=== PATIENT | female | born 1950 | race African-American/Black ===

== ENCOUNTER 2019-09-26 15:12 | Emergency (ER) | payer MEDICARE, OTHER ==
[~2019-09-26] VITALS: Ht 152.4 cm; Wt 57.2 kg
--- NOTE | 2019-09-26 15:56 | NUR ---
Dr Corona at the bedside for MSE.
[2019-09-26] MEDS ORDERED: IV NORMAL SALINE 1000 ML BAG IV ONE (16:00)
[2019-09-26 16:20] LABS: BASOPHILS % (AUTO) 0.3 % (0.0-2.0); EOSINOPHILS % (AUTO) 0.2 % (0.0-7.0); HEMATOCRIT 41.6 % (31.2-41.9); HEMOGLOBIN 13.5 g/dL (10.9-14.3); LYMPHOCYTES # (AUTO) 1.1 K/uL (20.0-40.0); LYMPHOCYTES % (AUTO) 6.6 % (20.5-51.5); MEAN CORPUSCULAR HEMOGLOBIN 31.2 uug (24.7-32.8); MEAN CORPUSCULAR HGB CONC 33 g/dL (32.3-35.6); MEAN CORPUSCULAR VOLUME 95.8 fL (75.5-95.3); MONOCYTES # (AUTO) 0.7 K/uL (2.0-10.0); MONOCYTES % (AUTO) 4.3 % (0.0-11.0); NEUTROPHILS # (AUTO) 14.5 K/uL (1.8-8.9); NEUTROPHILS % (AUTO) 88.6 % (38.5-71.5); PLATELET COUNT (AUTO) 227 K/uL (179-408); RED BLOOD CELL COUNT(AUTO) 4.34 MIL/uL (3.63-4.92); WHITE BLOOD COUNT (AUTO) 16.3 K/uL (3.8-11.8)
--- NOTE | 2019-09-26 16:21 | NUR ---
Pt out of ER via [facility]ana for CT scan.
[2019-09-26 16:33] LABS: BILIRUBIN,DIRECT 0.1 mg/dL (0.0-0.2); BILIRUBIN,TOTAL 0.2 mg/dL (0.2-1.0); POTASSIUM 3.8 mmol/L (3.5-5.1); TOTAL PROTEIN, SERUM 8.4 g/dL (6.4-8.2)
--- NOTE | 2019-09-26 16:39 | NUR ---
Pt back from CT, Patient is resting comfortably in bed with eyes closed, NAD noted.
--- NOTE | 2019-09-26 16:59 | NUR ---
Paged [facility], per ERMD request, awaiting call back.
--- NOTE | 2019-09-26 17:03 | NUR ---
Pt accidentaly pulled SL out. Catheter intact and site benign. Pressure and 4x4 gauze applied to site. No bleeding noted.
--- NOTE | 2019-09-26 17:44 | NUR ---
Pt becomes restless inspite reorienting. Pt has another very large BM, appeares normal.
--- NOTE | 2019-09-26 17:50 | NUR ---
ER spoke to DR Theodore(pt's PCP). Instructed to send pt's back to facility.
--- NOTE | 2019-09-26 17:53 | NUR ---
Called [facility] for a BLS transfer, ETA [id number], trip #[id number]. Patient is resting comfortably in bed with eyes closed, NAD noted.
--- NOTE | 2019-09-26 18:53 | NUR ---
Report given to transfering it application administrator, Pt left ER in stable condition, D/C paper and pt's belongings given to pt/it application administrator.
[2019-09-26 18:56] VITALS: BP 140/80
== END 2019-09-26 18:57 ==
LOC: ER 15:16
DX: R11.10 Vomiting, unspecified (principal); K56.41 Fecal impaction; G30.9 Alzheimer's disease, unspecified; F02.80 Dementia in other diseases classified elsewhere, unspecified severity, without behavioral disturbance, psychotic disturbance, mood disturbance, and anxiety; R93.5 Abnormal findings on diagnostic imaging of other abdominal regions, including retroperitoneum; E78.5 Hyperlipidemia, unspecified; Z79.899 Other long term (current) drug therapy; Z79.82 Long term (current) use of aspirin; I31.3 Pericardial effusion (noninflammatory); D72.829 Elevated white blood cell count, unspecified; R10.9 Unspecified abdominal pain
CPT/HCPCS: 36415; 70030-TC; 71045; 83605; 83690; 85025; 85730; 87040; 93005; A4663; J7030

== ENCOUNTER 2019-10-23 16:02 | Inpatient (IN) | payer MEDICARE, OTHER ==
[~2019-10-23] VITALS: Ht 160 cm; Wt 54.9 kg
[~2019-10-23 16:02] MED LIST: ASPI81TA31 PO; CITA20TA16 PO; CRAN400C PO; DONE10TA44 PO; LOSA100T31 PO; MEMA10TA PO; SIMV-46 PO; VITAMIN D3 PO
[2019-10-23] MEDS ORDERED: VITAMIN D3 PO (16:25)
[2019-10-23 17:37] LABS: BASOPHILS % (AUTO) 0.5 % (0.0-2.0); EOSINOPHILS # (AUTO) 0.1 K/uL (0.0-0.7); EOSINOPHILS % (AUTO) 1.7 % (0.0-7.0); HEMATOCRIT 40.5 % (31.2-41.9); HEMOGLOBIN 13.5 g/dL (10.9-14.3); LYMPHOCYTES # (AUTO) 2.6 K/uL (20.0-40.0); LYMPHOCYTES % (AUTO) 33.7 % (20.5-51.5); MEAN CORPUSCULAR HEMOGLOBIN 31.4 uug (24.7-32.8); MEAN CORPUSCULAR HGB CONC 33 g/dL (32.3-35.6); MONOCYTES # (AUTO) 0.6 K/uL (2.0-10.0); MONOCYTES % (AUTO) 7.3 % (0.0-11.0); NEUTROPHILS # (AUTO) 4.4 K/uL (1.8-8.9); NEUTROPHILS % (AUTO) 56.8 % (38.5-71.5); PLATELET COUNT (AUTO) 254 K/uL (179-408); RED BLOOD CELL COUNT(AUTO) 4.31 MIL/uL (3.63-4.92); WHITE BLOOD COUNT (AUTO) 7.7 K/uL (3.8-11.8)
[2019-10-23 17:44] LABS: CREATININE 0.9 mg/dL (0.6-1.3); POTASSIUM 3.2 mmol/L (3.5-5.1)
[2019-10-23 17:56] LABS: BILIRUBIN,TOTAL 0.2 mg/dL (0.2-1.0); TOTAL PROTEIN, SERUM 8.2 g/dL (6.4-8.2)
[2019-10-23] MEDS ORDERED: POTASSIUM BICARBONATE/CIT AC 25 MEQ TABLET.EFF PO ONE (18:15)
[2019-10-23] MEDS ORDERED: POTASSIUM BICARBONATE/CIT AC 25 MEQ TABLET.EFF ONE (18:18)
--- NOTE | 2019-10-23 19:30 | NUR ---
hand off and sbar given to night rn
[2019-10-23 20:16] LABS: *BILIRUBIN,URIN NEGATIVE (NEGATIVE); *BLOOD, URINE 2+ (NEGATIVE); *CLARITY,URINE SLIGHTLY CLOUDY (CLEAR); *COLOR,URINE YELLOW (YELLOW); *KETONES,URINE NEGATIVE (NEGATIVE); *UROBILINOGEN,URINE 0.2 E.U./dl (NORMAL); LEUKOCYTE ESTERASE ,URINE 1+ (NEGATIVE); NITRITE, URINE POSITIVE (NEGATIVE); PH,URINE 5.5 (5.0-8.0); UGLUCOSE NEGATIVE (NEGATIVE)
[2019-10-23 20:26] LABS: BACTERIA,URINE MA /HPF (NONE SEEN); SQUAMOUS EPITHELIAL CELL,UR FEW /HPF (NONE SEEN)
[2019-10-23] MEDS ORDERED: CEFTRIAXONE 1 G in IV DEXTROSE 5% 50 ML IV ONE (21:00)
[2019-10-23] MEDS ORDERED: CEFTRIAXONE 1 G VIAL ONE (21:30)
--- NOTE | 2019-10-23 23:29 | NUR ---
Report given to Magui WARREN [facility].
[2019-10-24] VITALS: BP 146/75
--- NOTE | 2019-10-24 | NUR ---
RECEIVED PATIENT VIA GURNEY FROM ER. PATIENT IS ALERT TO SELF ONLY. CONFUSED BUT PLEASANT WHEN APPROACHED. VSS. NO S/S OF PAIN OR DISCOMFORT. NO RESP. DISTRESS NOTED. H/L INTACT AND PATENT. CALL LIGHT IN REACH. ALL NEEDS ATTENDED. WILL CONTINUE TO MONITOR AND ASSESS.
[2019-10-24 05:39] VITALS: BP 133/72
[2019-10-24 07:15] LABS: BASOPHILS % (AUTO) 0.5 % (0.0-2.0); EOSINOPHILS # (AUTO) 0.1 K/uL (0.0-0.7); EOSINOPHILS % (AUTO) 1.4 % (0.0-7.0); HEMATOCRIT 37.9 % (31.2-41.9); HEMOGLOBIN 12.5 g/dL (10.9-14.3); LYMPHOCYTES # (AUTO) 2.3 K/uL (20.0-40.0); LYMPHOCYTES % (AUTO) 28.8 % (20.5-51.5); MEAN CORPUSCULAR HEMOGLOBIN 31.3 uug (24.7-32.8); MEAN CORPUSCULAR HGB CONC 33 g/dL (32.3-35.6); MEAN CORPUSCULAR VOLUME 94.7 fL (75.5-95.3); MONOCYTES # (AUTO) 0.6 K/uL (2.0-10.0); MONOCYTES % (AUTO) 7.9 % (0.0-11.0); NEUTROPHILS # (AUTO) 4.8 K/uL (1.8-8.9); NEUTROPHILS % (AUTO) 61.4 % (38.5-71.5); PLATELET COUNT (AUTO) 244 K/uL (179-408); WHITE BLOOD COUNT (AUTO) 7.9 K/uL (3.8-11.8)
[2019-10-24 07:26] LABS: POTASSIUM 3.4 mmol/L (3.5-5.1)
[2019-10-24] MEDS ORDERED: HOME MED MISCELLANEOUS XX SCH (07:30)
--- NOTE | 2019-10-24 08:00 | NUR ---
received pt. resting in bed alert oriented to self non verbal. pt. appears to be anxious. pt. resting comfortably. IV in R wrist 20 gauge intact patent saline lock. Pt. on room air saturating well. safety measures in place. call light within reach. will continue to monitor pt.
[2019-10-24 10:00] VITALS: BP 141/87
[2019-10-24] MEDS: LOSARTAN POTASSIUM 50 MG TABLET PO SCH (10:26)
[2019-10-24] MEDS: MEMANTINE HCL 10 MG TABLET PO SCH ×2 (10:26→21:02)
[2019-10-24] MEDS: ASPIRIN 81 MG TAB.CHEW PO SCH (10:26)
[2019-10-24] MEDS: DONEPEZIL 10 MG TABLET PO SCH (10:27)
[2019-10-24] MEDS: CITALOPRAM 20 MG TABLET PO SCH (10:28)
[2019-10-24] MEDS ORDERED: POTASSIUM CHLORIDE 20 MEQ TAB.PRT.SR PO ONE (13:00)
[2019-10-24 15:00] VITALS: BP 136/79
[2019-10-24 19:46] VITALS: BP 129/77
[2019-10-24] MEDS: SIMVASTATIN 20 MG TABLET PO SCH (21:02)
[2019-10-25 04:59] VITALS: BP 117/62
--- NOTE | 2019-10-25 07:15 | NUR ---
Nurys from the laboratory reported that patients result is negative for COVID-19 virus
--- NOTE | 2019-10-25 08:09 | NUR ---
Patient noted sitting in up in bed, no complaints of pain or signs of distress noted, on isolation for possible Covid, call light in reach, bed locked and in lowest position, all needs met, lab called for reports that patient is covid negative
[2019-10-25] MEDS: DONEPEZIL 10 MG TABLET PO SCH (08:31)
[2019-10-25] MEDS: CITALOPRAM 20 MG TABLET PO SCH (08:31)
[2019-10-25] MEDS: ASPIRIN 81 MG TAB.CHEW PO SCH (08:31)
[2019-10-25] MEDS: LOSARTAN POTASSIUM 50 MG TABLET PO SCH (08:49)
[2019-10-25] MEDS: MEMANTINE HCL 10 MG TABLET PO SCH ×2 (08:50→20:43)
[2019-10-25] MEDS ORDERED: ERGOCALCIFEROL 50,000 UNIT CAPSULE PO SCH (09:00)
[2019-10-25 12:00] VITALS: BP 107/64
[2019-10-25 16:01] VITALS: BP 116/70
[2019-10-25] MEDS ORDERED: IV 1/2NS 1000 ML 1,000 ML IV PRN (16:33)
[2019-10-25] MEDS ORDERED: CEFTRIAXONE 1 G VIAL IM SCH (16:45)
[2019-10-25 20:00] VITALS: BP 128/62
--- NOTE | 2019-10-25 20:00 | NUR ---
RECEIVED PATIENT AWAKE IN BED. ALERT TO SELF ONLY. CONFUSED BUT PLEASANT WHEN APPROACHED. NO S/S OF PAIN OR DISCOMFORT. NO FACIAL GRIMACE NOTED. NO RESP. DISTRESS NOTED. VS WNL. IVF INFUSING WELL TO RIGHT HAND #22 GAUGE. BED ALARM ON. CALL LIGHT IN REACH. ALL NEEDS ATTENDED. WILL CONTINUE TO MONITOR AND ASSESS.
[2019-10-25] MEDS: SIMVASTATIN 20 MG TABLET PO SCH (20:43)
[2019-10-25] MEDS ORDERED: CEFTRIAXONE 1 G in IV DEXTROSE 5% 50 ML IV SCH (21:00)
[2019-10-26 04:00] VITALS: BP 116/50
--- NOTE | 2019-10-26 05:30 | NUR ---
PATIENT ASLEEP IN BED. VS WNL. SLEPT WELL THROUGHOUT THE NIGHT. BED ALARM ON. CALL LIGHT IN REACH. WILL CONTINUE TO MONITOR AND ASSESS.
[2019-10-26 06:27] LABS: BASOPHILS % (AUTO) 0.5 % (0.0-2.0); EOSINOPHILS # (AUTO) 0.2 K/uL (0.0-0.7); EOSINOPHILS % (AUTO) 2.5 % (0.0-7.0); HEMATOCRIT 34.9 % (31.2-41.9); LYMPHOCYTES # (AUTO) 2.5 K/uL (20.0-40.0); LYMPHOCYTES % (AUTO) 34.9 % (20.5-51.5); MEAN CORPUSCULAR HEMOGLOBIN 32.7 uug (24.7-32.8); MEAN CORPUSCULAR HGB CONC 34 g/dL (32.3-35.6); MEAN CORPUSCULAR VOLUME 95.2 fL (75.5-95.3); MONOCYTES # (AUTO) 0.6 K/uL (2.0-10.0); MONOCYTES % (AUTO) 8.7 % (0.0-11.0); NEUTROPHILS # (AUTO) 3.9 K/uL (1.8-8.9); NEUTROPHILS % (AUTO) 53.4 % (38.5-71.5); PLATELET COUNT (AUTO) 218 K/uL (179-408); RED BLOOD CELL COUNT(AUTO) 3.67 MIL/uL (3.63-4.92); WHITE BLOOD COUNT (AUTO) 7.2 K/uL (3.8-11.8)
[2019-10-26 06:37] LABS: MAGNESIUM 1.9 mg/dL (1.8-2.4); PHOSPHOROUS 4.3 mg/dL (2.5-4.9); POTASSIUM 3.9 mmol/L (3.5-5.1)
--- NOTE | 2019-10-26 07:15 | NUR ---
Received patient resting in bed, awake. No signs of acute distress. Bed in lowest position, side rails up x2, call light within reach. will continue to monitor.
[2019-10-26] MEDS: ASPIRIN 81 MG TAB.CHEW PO SCH (08:26)
[2019-10-26] MEDS: MEMANTINE HCL 10 MG TABLET PO SCH (08:26)
[2019-10-26] MEDS: CITALOPRAM 20 MG TABLET PO SCH (08:27)
[2019-10-26] MEDS: DONEPEZIL 10 MG TABLET PO SCH (08:29)
[2019-10-26] MEDS: LOSARTAN POTASSIUM 50 MG TABLET PO SCH (08:29)
[2019-10-26] MEDS ORDERED: CEPH500C2 PO (10:48)
[2019-10-26 12:00] VITALS: BP 113/63
--- NOTE | 2019-10-26 14:30 | NUR ---
Discharged patient to [facility] facility. Reviewed D/C instructions with patient. Removed IV, helped patient get dressed and stand. Escorted patient via WC down with private car.
[2019-10-26] MEDS ORDERED: CEphaleXIN 500 MG CAPSULE PO SCH (21:00)
== END 2019-10-26 14:30 | disposition home health service (06) | DRG 690 ==
LOC: ER 16:09 → MED 22:42 → MEDSURG3 10-25 19:40
PROVIDERS: ADMIT Internal Medicine; ATTEND Internal Medicine
DX: N39.0 Urinary tract infection, site not specified (principal); E87.0 Hyperosmolality and hypernatremia; R05 Cough; Z20.828 Contact with and (suspected) exposure to other viral communicable diseases; G30.9 Alzheimer's disease, unspecified; F02.80 Dementia in other diseases classified elsewhere, unspecified severity, without behavioral disturbance, psychotic disturbance, mood disturbance, and anxiety; E78.5 Hyperlipidemia, unspecified; I10 Essential (primary) hypertension; F32.9 Major depressive disorder, single episode, unspecified; B96.20 Unspecified Escherichia coli [E. coli] as the cause of diseases classified elsewhere; R50.9 Fever, unspecified
CPT/HCPCS: 36415; 70030-TC; 71045; 83735; 84100; 85025; 87077; 87086; 87400; 93005; A4663; C1758; G0378; J0696; J3490; J7060

== ENCOUNTER 2019-10-29 14:20 | Inpatient (IN) | payer MEDICARE, OTHER ==
[~2019-10-29] VITALS: Ht 165.1 cm; Wt 49.9 kg
[~2019-10-29 14:20] MED LIST changes: +CEPH500C2 PO
--- NOTE | 2019-10-29 14:54 | NUR ---
Dr [email or web address]. COVID-19 isolation observed in ER room 4B.
--- NOTE | 2019-10-29 15:01 | NUR ---
Patient is seen walking in ER hallway. Per MD, this patient is a "PUI" for COVID-19 because this patient came from residential ([facility]).
--- NOTE | 2019-10-29 15:04 | NUR ---
Nursing supervisor assembly room Shanon notified re: 1:1 sitter needed for this patient who is ambulating, baseline confuse & catergorized as a "patient under investigation" for COVID-19.
--- NOTE | 2019-10-29 15:12 | NUR ---
1:1 sitter @bedside with flight security specialist Raz
[2019-10-29 15:49] LABS: BASOPHILS % (AUTO) 0.1 % (0.0-2.0); EOSINOPHILS % (AUTO) 0.2 % (0.0-7.0); HEMATOCRIT 40.6 % (31.2-41.9); HEMOGLOBIN 13.5 g/dL (10.9-14.3); LYMPHOCYTES # (AUTO) 0.6 K/uL (20.0-40.0); LYMPHOCYTES % (AUTO) 4.5 % (20.5-51.5); MEAN CORPUSCULAR HEMOGLOBIN 31.4 uug (24.7-32.8); MEAN CORPUSCULAR HGB CONC 33 g/dL (32.3-35.6); MEAN CORPUSCULAR VOLUME 94.8 fL (75.5-95.3); MONOCYTES # (AUTO) 0.7 K/uL (2.0-10.0); MONOCYTES % (AUTO) 5.1 % (0.0-11.0); NEUTROPHILS # (AUTO) 11.6 K/uL (1.8-8.9); NEUTROPHILS % (AUTO) 90.1 % (38.5-71.5); PLATELET COUNT (AUTO) 245 K/uL (179-408); RED BLOOD CELL COUNT(AUTO) 4.28 MIL/uL (3.63-4.92); WHITE BLOOD COUNT (AUTO) 12.9 K/uL (3.8-11.8)
[2019-10-29 15:53] LABS: CREATININE 1.1 mg/dL (0.6-1.3); POTASSIUM 3.5 mmol/L (3.5-5.1)
[2019-10-29 16:00] LABS: *BILIRUBIN,URIN NEGATIVE (NEGATIVE); *BLOOD, URINE 2+ (NEGATIVE); *CLARITY,URINE CLOUDY (CLEAR); *COLOR,URINE YELLOW (YELLOW); *KETONES,URINE NEGATIVE (NEGATIVE); *UROBILINOGEN,URINE 0.2 E.U./dl (NORMAL); LEUKOCYTE ESTERASE ,URINE 1+ (NEGATIVE); NITRITE, URINE NEGATIVE (NEGATIVE); PH,URINE 5.5 (5.0-8.0); UGLUCOSE NEGATIVE (NEGATIVE)
[2019-10-29 16:06] LABS: BILIRUBIN,TOTAL 0.3 mg/dL (0.2-1.0)
[2019-10-29 16:13] LABS: WBC,URINE 50-80 /HPF (0-3)
[2019-10-29 16:14] LABS: BACTERIA,URINE MANY /HPF (NONE SEEN); MUCUS,URINE MANY /LPF (0-FEW); SQUAMOUS EPITHELIAL CELL,UR MANY /HPF (NONE SEEN)
--- NOTE | 2019-10-29 16:22 | NUR ---
PAGED DR. DHALIWAL. AWAITING CALLBACK. ATTEMPT 1.
[2019-10-29] MEDS ORDERED: CEFTRIAXONE 1 G VIAL ONE (16:27)
[2019-10-29] MEDS ORDERED: CEFTRIAXONE 1 G in IV DEXTROSE 5% 50 ML IV ONE (16:30)
--- NOTE | 2019-10-29 16:42 | NUR ---
Pt. admitted to [facility] , under care of Yara Cuellar Belongs List completed
[2019-10-29] MEDS ORDERED: IV NORMAL SALINE 1000 ML BAG IV ONE (17:00)
[2019-10-29] MEDS ORDERED: CRANBERRY 4200 MG PO SCH (17:00)
--- NOTE | 2019-10-29 17:30 | NUR ---
1:1 sitter @bedside with Mariah BRO
--- NOTE | 2019-10-29 18:00 | NUR ---
IVF STILL INFUSING SITE REMAINS PATENT. NO S/S ANY DISTRESS.
--- NOTE | 2019-10-29 18:37 | NUR ---
RECEIVED PATIENT FROM ER. PATIENT CAME FROM [facility], PT A/0 X1, NO ACUTE RESPIRATORY DISTRESS PT ON RA SATS:100%, PT AMBULATORY WITH ASSIST. NO SKIN ISSUES, SKIN IS INTACT.
[2019-10-29 18:43] VITALS: BP 114/64
[2019-10-29] MEDS ORDERED: CEFTRIAXONE 1 G VIAL IM SCH (19:00)
[2019-10-29] MEDS: SIMVASTATIN 20 MG TABLET PO SCH (20:54)
[2019-10-29] MEDS: MEMANTINE HCL 10 MG TABLET PO SCH (20:54)
[2019-10-29 21:40] VITALS: BP 126/71
--- NOTE | 2019-10-29 22:13 | NUR ---
PATIENT LOW GRADE FEVER OF 99.6. ORDERS RECEIVED BY NEPHRO GROUP DR. EILEEN YEAGER FOR TYLENOL 650MG EVERY 6 HOURS NEEDED.
[2019-10-29] MEDS ORDERED: ACETAMINOPHEN 325 MG TABLET PO PRN (22:15)
--- NOTE | 2019-10-29 22:16 | NUR ---
CONTACTED LAB FOR LACTIC ACID. I WAS INFORMED THAT PIPE WELDER WAS NOT ABLE TO DRAW. THEY WILL BE SENDING UP SOMEONE ELSE FOR ANOTHER DRAW.
--- NOTE | 2019-10-29 22:41 | NUR ---
ADMIT TO ORDERS AND CBC, BMP IN AM ORDERS PLACED. WRITTEN ORDERS IN CHART.
--- NOTE | 2019-10-30 04:25 | NUR ---
Patient admissions process completed. Belonging list completed. ID band on. Full code POLST noted in chart. IV intact and patent. Lactic Acid level WNL. safety precautions in place. all needs met. Will continue to monitor.
[2019-10-30 04:52] VITALS: BP 110/70
[2019-10-30 06:23] LABS: BASOPHILS % (AUTO) 0.4 % (0.0-2.0); EOSINOPHILS # (AUTO) 0.3 K/uL (0.0-0.7); EOSINOPHILS % (AUTO) 2.9 % (0.0-7.0); HEMATOCRIT 33.7 % (31.2-41.9); HEMOGLOBIN 11.5 g/dL (10.9-14.3); LYMPHOCYTES % (AUTO) 11.1 % (20.5-51.5); MEAN CORPUSCULAR HEMOGLOBIN 31.9 uug (24.7-32.8); MEAN CORPUSCULAR HGB CONC 34 g/dL (32.3-35.6); MEAN CORPUSCULAR VOLUME 93.9 fL (75.5-95.3); MONOCYTES # (AUTO) 1.1 K/uL (2.0-10.0); MONOCYTES % (AUTO) 12.2 % (0.0-11.0); NEUTROPHILS # (AUTO) 6.6 K/uL (1.8-8.9); NEUTROPHILS % (AUTO) 73.4 % (38.5-71.5); PLATELET COUNT (AUTO) 220 K/uL (179-408); RED BLOOD CELL COUNT(AUTO) 3.59 MIL/uL (3.63-4.92); WHITE BLOOD COUNT (AUTO) 8.9 K/uL (3.8-11.8)
[2019-10-30 06:31] LABS: CREATININE 0.9 mg/dL (0.6-1.3)
[2019-10-30] MEDS: DONEPEZIL 10 MG TABLET PO SCH (08:22)
[2019-10-30] MEDS: ASPIRIN 81 MG TAB.CHEW PO SCH (08:23)
[2019-10-30] MEDS: CITALOPRAM 20 MG TABLET PO SCH (08:23)
[2019-10-30] MEDS: MEMANTINE HCL 10 MG TABLET PO SCH ×2 (08:23→22:22)
[2019-10-30] MEDS: LOSARTAN POTASSIUM 50 MG TABLET PO SCH (08:34)
[2019-10-30 12:38] VITALS: BP 104/51
[2019-10-30 16:00] VITALS: BP 124/42
[2019-10-30] MEDS ORDERED: POTASSIUM CHLORIDE 20 MEQ TAB.PRT.SR PO ONE (17:00)
[2019-10-30] MEDS ORDERED: POTASSIUM CHLORIDE 20 MEQ POWDER PACKET PO ONE ×2 (17:00→21:00)
[2019-10-30] MEDS: CEFTRIAXONE 1 G in IV DEXTROSE 5% 50 ML IV SCH (17:11)
--- NOTE | 2019-10-30 18:35 | NUR ---
Adrienne (Infectious) here to see pt. Full report given. New orders received.
[2019-10-30 20:09] VITALS: BP 106/46
[2019-10-30] MEDS: SIMVASTATIN 20 MG TABLET PO SCH (22:22)
[2019-10-30] MEDS: METRONIDAZOLE 500 MG/NS 100ML 500 MG in PREMIXED 1 EACH IV SCH (22:22)
[2019-10-31 04:21] VITALS: BP 121/63
[2019-10-31] MEDS: METRONIDAZOLE 500 MG/NS 100ML 500 MG in PREMIXED 1 EACH IV SCH ×3 (05:13→21:13)
[2019-10-31 06:31] LABS: BASOPHILS % (AUTO) 0.2 % (0.0-2.0); EOSINOPHILS # (AUTO) 0.3 K/uL (0.0-0.7); EOSINOPHILS % (AUTO) 3.9 % (0.0-7.0); HEMATOCRIT 33.4 % (31.2-41.9); HEMOGLOBIN 11.2 g/dL (10.9-14.3); LYMPHOCYTES # (AUTO) 1.2 K/uL (20.0-40.0); LYMPHOCYTES % (AUTO) 17.6 % (20.5-51.5); MEAN CORPUSCULAR HEMOGLOBIN 31.5 uug (24.7-32.8); MEAN CORPUSCULAR HGB CONC 33 g/dL (32.3-35.6); MEAN CORPUSCULAR VOLUME 94.2 fL (75.5-95.3); MONOCYTES # (AUTO) 1.2 K/uL (2.0-10.0); MONOCYTES % (AUTO) 17.5 % (0.0-11.0); NEUTROPHILS # (AUTO) 4.3 K/uL (1.8-8.9); NEUTROPHILS % (AUTO) 60.8 % (38.5-71.5); PLATELET COUNT (AUTO) 207 K/uL (179-408); RED BLOOD CELL COUNT(AUTO) 3.55 MIL/uL (3.63-4.92)
[2019-10-31 06:42] LABS: CREATININE 0.8 mg/dL (0.6-1.3); MAGNESIUM 1.7 mg/dL (1.8-2.4); PHOSPHOROUS 3.2 mg/dL (2.5-4.9); POTASSIUM 3.1 mmol/L (3.5-5.1)
--- NOTE | 2019-10-31 08:00 | NUR ---
received pt. resting in bed alert to self. Pt. has IV in L AC 20 gauge intact patent saline lock. pt. appears in no distress resting comfortably. safety measures in place. bed in lowest position. will continue to monitor pt.
[2019-10-31 08:27] LABS: BAND % (MANUAL) 3 % (0-10); EOSINOPHILS % (MANUAL) 4 % (0-8); LYMPHOCYTES % (MANUAL) 12 % (20-40); MONOCYTES % (MANUAL) 13 % (2-10); NEUTROPHILS % (MANUAL) 68 % (42-75)
[2019-10-31 08:43] VITALS: BP 126/79
[2019-10-31] MEDS ORDERED: POTASSIUM CHLORIDE 20 MEQ TAB.PRT.SR PO ONE (08:45)
[2019-10-31] MEDS: DONEPEZIL 10 MG TABLET PO SCH (08:55)
[2019-10-31] MEDS: ASPIRIN 81 MG TAB.CHEW PO SCH (08:55)
[2019-10-31] MEDS: LOSARTAN POTASSIUM 50 MG TABLET PO SCH (08:55)
[2019-10-31] MEDS: MEMANTINE HCL 10 MG TABLET PO SCH ×2 (08:56→21:11)
[2019-10-31] MEDS: CITALOPRAM 20 MG TABLET PO SCH (08:56)
--- NOTE | 2019-10-31 10:29 | NUR ---
code status is not entered in computer. Spoke to motion picture director who will talk to Dr. Theodore about code status. motion picture director spoke to brother who is DPOA who wants CPR and full intubation. Spoke to ag service manager and electrical discharge machine operator instructed to put in order for full code and have new POLST signed by
--- NOTE | 2019-10-31 11:24 | NUR ---
received report from [place] lab that pt. is covid negative. [facility] called to report pt. is C.diff positive. incident response specialist made aware pt. is negative for COVID will move pt. up to 3rd floor once bed is available.
[2019-10-31] MEDS: MAGNESIUM SULFATE/D5W 100 ML IV SCH ×2 (14:10→15:56)
--- NOTE | 2019-10-31 14:36 | NUR ---
pt. removed IV. New IV put in R AC 22 gauge intact patent running Magnesium IV piggyback. Pt. is to have 2 bags of Mg. Second bag given to smelter charger on 3rd floor. Pt. transported to 3rd floor. Waiting to give report to Kitty ASTORGA
[2019-10-31 16:00] VITALS: BP 123/69
[2019-10-31] MEDS: CEFTRIAXONE 1 G in IV DEXTROSE 5% 50 ML IV SCH (16:34)
--- NOTE | 2019-10-31 19:30 | NUR ---
Received patient awake and alert in bed, nonverbal, but able to nod yes and no. No signs of acute distress noted. No s/s of pain or SOB. Vitals WNL. Patient negative for COVID19. Patient is on isolation contact for c.diff. Heplock on the right AC is intact and patent. Safety measures initiated. Bed is low and locked, call light within reach. Will continue to monitor.
[2019-10-31 20:03] VITALS: BP 122/67
[2019-10-31] MEDS: SIMVASTATIN 20 MG TABLET PO SCH (21:11)
[2019-10-31] MEDS: VANCOMYCIN FOR PO/GT/NG USE PO SCH (21:11)
[2019-11-01 04:00] VITALS: BP 114/71
[2019-11-01] MEDS: METRONIDAZOLE 500 MG/NS 100ML 500 MG in PREMIXED 1 EACH IV SCH (05:44)
[2019-11-01 07:20] LABS: CREATININE 0.9 mg/dL (0.6-1.3); POTASSIUM 3.3 mmol/L (3.5-5.1)
[2019-11-01] MEDS: ASPIRIN 81 MG TAB.CHEW PO SCH (08:46)
[2019-11-01] MEDS: MEMANTINE HCL 10 MG TABLET PO SCH (08:46)
[2019-11-01] MEDS: DONEPEZIL 10 MG TABLET PO SCH (08:46)
[2019-11-01] MEDS: CITALOPRAM 20 MG TABLET PO SCH (08:46)
[2019-11-01] MEDS: LOSARTAN POTASSIUM 50 MG TABLET PO SCH (08:49)
[2019-11-01] MEDS ORDERED: ERGOCALCIFEROL 50,000 UNIT CAPSULE PO SCH (09:00)
[2019-11-01] MEDS: VANCOMYCIN FOR PO/GT/NG USE PO SCH ×3 (09:15→17:19)
[2019-11-01] MEDS ORDERED: POTASSIUM CHLORIDE 20 MEQ TAB.PRT.SR PO ONE (09:15)
--- NOTE | 2019-11-01 10:00 | NUR ---
POTASSIUM LEVEL IS 3.[address] ARIAS WITH NEW ORDERS AND NOTED
[2019-11-01 10:10] VITALS: BP 110/57
[2019-11-01] MEDS ORDERED: METRONIDAZOLE 500 MG TABLET PO SCH (14:00)
--- NOTE | 2019-11-01 14:04 | NUR ---
PER THE MANDOLIN REPAIRER SHOP ROUTER PATIENT IS ACCEPTED AT [facility] AND WILL BE DISCHARGED TODAY AWAITING FOR DR ARIAS TO WRITE ORDERS
[2019-11-01 15:12] VITALS: BP 116/72
[2019-11-01] MEDS ORDERED: METR-147 PO (16:58)
[2019-11-01] MEDS ORDERED: VANC500V PO (16:58)
--- NOTE | 2019-11-01 17:00 | NUR ---
ORDER TO DISCHARGE PATIENT TO [facility] RECEIVED AND NOTED AND PER THE WASH AND GREASER PATIENTS BROTHER IS AWARE AND AGREES.
--- NOTE | 2019-11-01 18:30 | NUR ---
CALLED THE [facility] REPORT GIVEN TO SUKHI FOR CONTINUING CARE AWAITING FOR THE AMBULANCE TO PICK PATIENT UP
--- NOTE | 2019-11-01 19:00 | NUR ---
AMBULANCE DRIVERS HERE REPORT GIVEN AND PATIENT DISCHARGED TO [facility] IN SATISFACTORY CONDITION
== END 2019-11-01 23:11 | DRG 689 ==
LOC: ER 14:20 → MED 17:46 → MEDSURG3 10-31 14:30
PROVIDERS: ADMIT Internal Medicine Nephrology; ATTEND Internal Medicine
DX: N39.0 Urinary tract infection, site not specified (principal); G92 Toxic encephalopathy; A04.72 Enterocolitis due to Clostridium difficile, not specified as recurrent; E87.2 Acidosis; G30.9 Alzheimer's disease, unspecified; F02.80 Dementia in other diseases classified elsewhere, unspecified severity, without behavioral disturbance, psychotic disturbance, mood disturbance, and anxiety; E87.6 Hypokalemia; E83.42 Hypomagnesemia; E78.5 Hyperlipidemia, unspecified; I10 Essential (primary) hypertension; D72.829 Elevated white blood cell count, unspecified; Z79.82 Long term (current) use of aspirin
CPT/HCPCS: 36415; 70030-TC; 71045; 83605; 83735; 84100; 84443; 85025; 85730; 87040; 87086; 93005; A4663; G0378; J0696; J3370; J3475; J3490; J7030; J7040; J7060